=== PATIENT | female | born 1985 | race Caucasian/White ===

== ENCOUNTER 2019-04-11 18:33 | Emergency (ER) | payer SELFPAY ==
--- NOTE | 2019-04-11 18:51 | EDM.PDOCBH ---
<Zulema Estrella - Last Filed: 04/11/19 19:05> ED HPI GENERAL MEDICAL PROBLEM - General Chief Complaint: Behavioral/Psych Stated Complaint: suicidial ideation/medical clearance for senior care Time Seen by Provider: 04/11/19 18:33 Source of Information: Reports: Patient - History of Present Illness INITIAL COMMENTS - FREE TEXT/NARRATIVE: Patient comes into the emergency department under police custody for medical clearance. After the patient was arrested she did tell the arresting officer that she was suicidal. The arresting officer would like the patient evaluated regarding her statements. The patient states that she has a longstanding history of suicidal ideation plans and intent. Patient also states that she has been hospitalized on 5 or 6 different occasions throughout her pediatric and adult life related to suicidal attempts. The last attempt was approximately 3 weeks ago where she did try to overdose on medications that were not prescribed to her. Patient states that she has been getting a plethora of medications from other individuals in the community including Xanax , oxycodones, and hydrocodone's. States that she is also an avid user of methamphetamine she uses it almost on a daily basis. Patient states that she has been suicidal now for approximately 3 months and has most recently devised plans and has a attempted as stated above 3 weeks ago and does plan to attempt if at all possible. She does plan to attempt suicide by overdosing on medications and combination of alcohol. States that she has been diagnosed with schizoaffective disorder, borderline personality disorder, anxiety disorder , and major depressive disorder along with PTSD. States that she is supposed be on mood stabilization medication along with anxiety medication however she has not had insurance for the past 6 months and stopped taking her medications. Patient states that she has been self-medicating with the use of methamphetamine and pills. She states that she uses methamphetamine on a daily basis and any other pill forms that she can get her hands on. She also admits to using marijuana on a regular basis. Patient is currently under arrest for warrants. Patient states that she is currently homeless and has no reason to live. She does not have any housing for her family is no longer talking with her. States that she has been an active member and the social services designee in the past to help with her mental stability however she has not sought out treatment or working with them in the past year. Patient does want to reach out to patient rehabilitation for drug treatment however she is not willing to do outpatient services. Patient currently states that she feels sad, loss of interest, hopeless, helpless, worthless, loss of interest, patient states that she also has excessive worry, poor concentration,, and irritability. She also endorses self cutting behaviors. She states that she has 56 cuts on bilateral arms and lower extremities down by her feet. Cutting episode was approximately 1 week ago. Patient denies any homicidal ideations but states that she would like to harm herself at any chance she can get. Onset: Gradual Quality: Reports: Other Severity: Mild Improves with: Reports: None Worsens with: Reports: None Associated Symptoms: Reports: No Other Symptoms - Related Data Allergies Allergy/AdvReac Type Severity Reaction Status Date / Time codeine Allergy Vomiting Verified 04/11/19 18:43 tramadol Allergy Vomiting Verified 04/11/19 18:43 Home Meds: Home Meds . [No Known Home Meds] 04/11/19 [History] Past Medical History Psychiatric History: Reports: Addiction, Depression, Suicide Attempt, Suicidal Ideation Social & Family History - Tobacco Use Smoking Status *Q: Unknown Ever Smoked - Recreational Drug Use Recreational Drug Use: Yes Drug Use in Last 12 Months: Yes Recreational Drug Type: Reports: Methamphetamine, Morphine Recreational Drug Use Frequency: Daily ED ROS GENERAL - Review of Systems Review Of Systems: Comprehensive ROS is negative, except as noted in HPI. Constitutional: Reports: No Symptoms HEENT: Reports: No Symptoms Respiratory: Reports: No Symptoms Cardiovascular: Reports: No Symptoms Endocrine: Reports: No Symptoms GI/Abdominal: Reports: No Symptoms : Reports: No Symptoms Musculoskeletal: Reports: No Symptoms Skin: Reports: No Symptoms Neurological: Reports: No Symptoms Psychiatric: Reports: Agitation, Anxiety, Depression, Mood Lability, Suicidal Ideation Hematologic/Lymphatic: Reports: No Symptoms Immunologic: Reports: No Symptoms ED EXAM, BEHAVIORAL HEALTH - Physical Exam Exam: See Below Exam Limited By: No Limitations General Appearance: Alert, WD/WN Eye Exam: Bilateral Eye: EOMI Head: Atraumatic, Normocephalic Neck: Normal Inspection, Supple, Non-Tender, Full Range of Motion Respiratory/Chest: No Respiratory Distress, Lungs Clear, No Accessory Muscle Use Cardiovascular: Normal Peripheral Pulses, Regular Rate, Rhythm, No Edema GI/Abdominal: Normal Bowel Sounds, Soft, Non-Tender Back Exam: Normal Inspection, Full Range of Motion Extremities: Other (multiple superficial self cutting episodes ) Neurological: Alert, Normal Cognition, Oriented x 3 Psychiatric: Depressed Mood, Flat Affect, Restless Skin Exam: Warm, Dry, Other (superficial cutes bilateral arms multiple stages of healing. Bilateral lower legs multiple stages of healing. ) COURSE, BEHAVIORAL HEALTH COMP - Course Vital Signs: Last Vital Signs Temp 36.2 C 04/11/19 18:33 Pulse 90 04/11/19 18:33 Resp 18 04/11/19 18:33 BP 134/86 04/11/19 18:33 Pulse Ox 100 04/11/19 18:33 Orders, Labs, Meds: Laboratory Tests 04/11/19 04/11/19 04/11/19 Range/Units 19:08 19:08 19:30 WBC 8.7 (4.0-10.0) x10^3/uL RBC 4.36 (4.00-5.50) x10^6/uL Hgb 12.8 (12.0-16.0) g/dL Hct 38.5 (33.0-47.0) % MCV 88.3 (78.0-93.0) fL MCH 29.4 (26.0-32.0) pg MCHC 33.2 (32.0-36.0) g/dL RDW Coeff of Em 13.4 (10.0-15.0) % Plt Count 243 (130-400) x10^3/uL Neut % (Auto) 70.6 (50.0-80.0) % Lymph % (Auto) 18.8 L (25.0-50.0) % [place] % (Auto) 7.7 (2.0-11.0) % Eos % (Auto) 2.7 (0.0-4.0) % Baso % (Auto) 0.2 (0.2-1.2) % Sodium 140 (136-145) mmol/L Potassium 3.8 (3.5-5.1) mmol/L Chloride 103 (98-107) mmol/L Carbon Dioxide 28 (21-32) mmol/L Anion Gap 12.8 (10-20) mmol/L BUN 14 (7-18) mg/dL Creatinine 0.9 (0.55-1.02) mg/dL Est Cr Clr Drug Dosing TNP Estimated GFR (MDRD) > 60 Glucose 87 (74-106) mg/dL Calcium 8.7 (8.5-10.1) mg/dL Corrected Calcium 8.78 (8.5-10.1) mg/dL Total Bilirubin 0.4 (0.2-1.0) mg/dL AST 15 (15-37) U/L ALT 24 (14-59) U/L Alkaline Phosphatase 72 (46-116) U/L Total Protein 7.6 (6.4-8.2) g/dL Albumin 3.9 (3.4-5.0) g/dL Globulin 3.7 Albumin/Globulin Ratio 1.05 Urine Opiates Screen Negative (NEGATIVE) Ur Buprenorphine Scrn Negative (NEGATIVE) Ur Oxycodone Screen Negative (NEGATIVE) Ur EDDP (Meth Metab) Negative (NEGATIVE) Urine Methadone Screen Negative (NEGATIVE) Ur Barbituates Screen Negative (NEGATIVE) Ur Tricyclics Screen Negative (NEGATIVE) Ur Phencyclidine Scrn Negative (NEGATIVE) Ur Amphetamines Screen Positive H (NEGATIVE) U Methamphetamines Scrn Positive H (NEGATIVE) Urine MDMA Screen Negative (NEGATIVE) U Benzodiazepines Scrn Positive H (NEGATIVE) Urine Cocaine Screen Negative (NEGATIVE) U Marijuana (THC) Screen Negative (NEGATIVE) Departure - Departure Disposition: DC/Tfer to Other 70 Clinical Impression: Suicidal ideation - Discharge Information Referrals: Varun Churchill MD [Primary Care Provider] - Forms: ED Department Discharge Additional Instructions: Follow-up with [facility] as needed. The # is [phone]. Sepsis Event Note - Evaluation Sepsis Screening Result: No Definite Risk - Focused Exam Date Exam was Performed: 04/11/19 Time Exam was Performed: 19:05 - Assessment/Plan Plan: 1. report provided to Morro Perez who will assume care. Labs and urine ordered. <Morro Perez W - Last Filed: 04/21/19 11:13> Departure - Departure Time of Disposition: 20:30
[2019-04-11 19:34] LABS: CHLORIDE,CL 103 mmol/L (98-107); SODIUM,NA 140 mmol/L (136-145)
[2019-04-11 19:37] LABS: ANION GAP 12.8 mmol/L (10-20)
[2019-04-11 19:43] LABS: BUPRENORPHINE,URINE NEGATIVE (NEGATIVE); MARIJUANA,URINE NEGATIVE (NEGATIVE); METHYLENEDIOXYMETHAMP,UR NEGATIVE (NEGATIVE); PHENCYCLIDINE,URINE NEGATIVE (NEGATIVE)
== END 2019-04-11 20:45 | disposition other institution (70) ==
LOC: VM.ED 18:33
DX: R45.851 Suicidal ideations (principal); Z88.5 Allergy status to narcotic agent
CPT/HCPCS: 36415; 80053; 80305-QW; 85025; 99285

== ENCOUNTER 2020-09-02 08:31 | Emergency (ER) | payer SELFPAY ==
[2020-09-02] MEDS ORDERED: Ibuprofen 200 MG Tab PO ONE (08:44)
--- NOTE | 2020-09-02 09:25 | CR ---
[id number] RAD/RAD Chest PA And Lateral EXAM: RAD Chest PA And Lateral CLINICAL DATA: TRAUMA COMPARISON: No previous similar exam is available. FINDINGS: The lungs are clear. The cardiomediastinal contour is normal. The regional bones and soft tissues are unremarkable. IMPRESSION: NO ACUTE PROCESS. Dale Mcclure MD 09/02/20 0924 Thank you for allowing us to participate in the care of your patient.
--- NOTE | 2020-09-02 09:45 | CR ---
[id number] RAD/RAD Wrist Right 3V Min EXAM: RAD Wrist Right 3V Min CLINICAL DATA: TRAUMA COMPARISON: No previous similar exam is available. FINDINGS: No fracture or dislocation is seen. There is no radiopaque foreign body in the soft tissues. There is no air in the soft tissues. There is no cortical thickening or periosteal reaction either. IMPRESSION: NEGATIVE PLAIN FILM EXAM. Dale Mcclure MD 09/02/20 0944 Thank you for allowing us to participate in the care of your patient.
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
== END 2020-09-02 10:30 ==
LOC: VM.ED 08:31
DX: S63.501A Unspecified sprain of right wrist, initial encounter (principal); S20.211A Contusion of right front wall of thorax, initial encounter; Z88.5 Allergy status to narcotic agent; Y04.0XXA Assault by unarmed brawl or fight, initial encounter
CPT/HCPCS: 71046; 73110-RT; 99283; 99283-25; A9270-GY

== ENCOUNTER 2021-02-15 20:47 | Emergency (ER) | payer BC, MEDICAID ==
--- NOTE | 2021-02-15 21:15 | EDM.PDOC ---
ED HPI GENERAL MEDICAL PROBLEM - General Stated Complaint: shaky Time Seen by Provider: 02/15/21 21:00 Source of Information: Reports: Patient, Old Records, Police History Limitations: Reports: No Limitations - History of Present Illness INITIAL COMMENTS - FREE TEXT/NARRATIVE: [facility] shakiness for the last week or so that is getting worse. She has been incarcerated since August. Past history of alcohol abuse and methamphetamine and benzo abuse. Tested negative for hiv/hepc per patient in the last couple of months. No drug use in prison. has a history of anxiety and bipolar disease, was off her meds prior to prison, but now taking them. Has been having heat intolerability, hair loss, no weight change and worsening of tremor. NO changes in psych meds. Has had her covid vaccine. EAting and drinking normally, normal stools. no changes in color of urine.has been having cycles twice a month but is on hormone therapy. NO exposures to chemical , does not have a job at the prison Headache Pain Score (Numeric/FACES): 6 - Related Data Allergies Allergy/AdvReac Type Severity Reaction Status Date / Time codeine Allergy Vomiting Verified 09/02/20 10:39 tramadol Allergy Vomiting Verified 09/02/20 10:39 Home Meds: Home Meds . [Unable to Verify Home Med List] 09/02/20 [History] Past Medical History Psychiatric History: Reports: Addiction, Bipolar, Depression, Suicide Attempt, Suicidal Ideation Social & Family History - Alcohol Use Alcohol Use History: Yes Date/Time of Last Drink Comment: last use 08/2020 Alcohol Use in Last Twelve Months: Yes - Recreational Drug Use Recreational Drug Use: Yes Drug Use in Last 12 Months: Yes Recreational Drug Type: Reports: Benzodiazepines, Methamphetamine Recreational Drug Last Use: 08/2020 ED ROS GENERAL - Review of Systems Review Of Systems: See Below Constitutional: Denies: Fever, Chills, Malaise, Weakness, Fatigue, Night Sweats, Diaphoresis, Decreased Appetite, Weight Loss, Weight Gain HEENT: Denies: Dental Pain, Sinus Problem, Throat Pain, Throat Swelling Respiratory: Denies: Shortness of Breath, Cough Cardiovascular: Reports: Lightheadedness (with changing position), Palpitations. Denies: Chest Pain GI/Abdominal: Denies: Abdominal Pain, Anorexia, Black Stool, Bloody Stool, Diarrhea, Nausea, Vomiting : Reports: Irregular Menses. Denies: Dysuria, Flank Pain, Frequency, Incontinence, Urgency Musculoskeletal: Reports: No Symptoms Skin: Reports: No Symptoms Neurological: Reports: Tremors. Denies: Headache, Seizure, Syncope, Tingling, Difficulty Walking, Weakness Psychiatric: Reports: Anxiety, Depression, Mood Lability ED EXAM, GENERAL - Physical Exam Exam: See Below Exam Limited By: No Limitations General Appearance: Alert, WD/WN, No Apparent Distress Eye Exam: Bilateral Eye: EOMI, Normal Inspection, PERRL Ears: Normal External Exam, Normal Canal, Hearing Grossly Normal, Normal TMs Nose: Normal Inspection Throat/Mouth: Normal Inspection, Normal Lips, Normal Oropharynx, Normal Voice, No Airway Compromise Head: Atraumatic Neck: Normal Inspection, Supple, Non-Tender, Full Range of Motion. No: Thyromegaly Respiratory/Chest: No Respiratory Distress, Lungs Clear, No Accessory Muscle Use, Chest Non-Tender Cardiovascular: Normal Peripheral Pulses, Regular Rate, Rhythm GI/Abdominal: Normal Bowel Sounds, Soft, Non-Tender, No Distention, No Abnormal Bruit, No Mass Back Exam: Normal Inspection, Full Range of Motion. No: CVA Tenderness (L), CVA Tenderness (R) Extremities: Normal Inspection, Normal Range of Motion, Non-Tender, No Pedal Edema, Normal Capillary Refill Neurological: Alert, Oriented, CN II-XII Intact, Normal Cognition, Normal Gait, No Motor/Sensory Deficits, Other (fine tremor, more with intention of movement. can grasp objects, no weakness) Psychiatric: Normal Affect, Normal Mood (cooperative) Skin Exam: Warm, Dry, Intact Course - Vital Signs Last Recorded V/S: Last Vital Signs Temp 37.2 C 02/15/21 20:50 Pulse 75 02/15/21 20:50 Resp 18 02/15/21 20:50 BP 116/58 L 02/15/21 20:50 Pulse Ox 98 02/15/21 20:50 - Orders/Labs/Meds Orders: Active Orders 24 hr Category Date Time Status CULTURE URINE [RM] Stat Lab 02/15/21 21:30 Received Labs: Laboratory Tests 02/15/21 02/15/21 02/15/21 Range/Units 21:30 21:30 21:30 WBC (4.0-10.0) x10^3/uL RBC (4.00-5.50) x10^6/uL Hgb (12.0-16.0) g/dL Hct (33.0-47.0) % MCV (78.0-93.0) fL MCH (26.0-32.0) pg MCHC (32.0-36.0) g/dL RDW Coeff of Em (10.0-15.0) % Plt Count (130-400) x10^3/uL Immature Gran % (Auto) (0.00-0.43) % Neut % (Auto) (50.0-80.0) % Lymph % (Auto) (25.0-50.0) % [place] % (Auto) (2.0-11.0) % Eos % (Auto) (0.0-4.0) % Baso % (Auto) (0.2-1.2) % Neut # (Auto) (1.8-7.7) x10^3/uL Lymph # (Auto) (1.0-4.8) x10^3/uL [place]on # (Auto) (0.0-0.8) x10^3/uL Eos # (Auto) (0.0-0.5) x10^3/uL Baso # (Auto) (0.0-0.2) x10^3/uL Immature Gran # (Auto) (0.00-0.07) x10^3/uL Sodium (136-145) mmol/L Potassium (3.5-5.1) mmol/L Chloride (98-107) mmol/L Carbon Dioxide (21-32) mmol/L Anion Gap (5-15) mmol/L BUN (7-18) mg/dL Creatinine (0.55-1.02) mg/dL Est Cr Clr Drug Dosing mL/min Estimated GFR (MDRD) Glucose (70-99) mg/dL Calcium (8.5-10.1) mg/dL Corrected Calcium (8.5-10.1) mg/dL Magnesium (1.8-2.4) mg/dL Total Bilirubin (0.2-1.0) mg/dL AST (15-37) U/L ALT (14-59) U/L Alkaline Phosphatase (46-116) U/L Ammonia (19-54) ug/dL Total Protein (6.4-8.2) g/dL Albumin (3.4-5.0) g/dL Globulin Albumin/Globulin Ratio TSH, Ultra Sensitive (0.358-3.74) uIU/mL Urine Color Yellow (YELLOW) Urine Appearance Slightly cloudy H (CLEAR) Urine pH 5.5 (5.0-8.0) Ur Specific [place] 1.025 Urine Protein Negative (NEGATIVE) mg/dL Urine Glucose (UA) Negative (NEGATIVE) mg/dL Urine Ketones Negative (NEGATIVE) mg/dL Urine Occult Blood Moderate H (NEGATIVE) Urine Nitrite Negative (NEGATIVE) Urine Bilirubin Negative (NEGATIVE) Urine Urobilinogen 0.2 (0.2) EU/dL Ur Leukocyte Esterase Trace H (NEGATIVE) Urine RBC 75-100 H (NOT SEEN) /HPF Urine WBC 5-10 H (NOT SEEN) /HPF Ur Squamous Epith Cells Occasional H (NOT SEEN) /HPF Urine Bacteria Rare (NOT SEEN) /HPF Urine Mucus Rare H (NOT SEEN) /LPF Urine HCG, Qual Negative (NEGATIVE) Urine Opiates Screen Negative (NEGATIVE) Ur Buprenorphine Scrn Negative (NEGATIVE) Ur Oxycodone Screen Negative (NEGATIVE) Urine Methadone Screen Negative (NEGATIVE) Ur Barbiturates Screen Negative (NEGATIVE) Ur Phencyclidine Scrn Negative (NEGATIVE) Ur Amphetamine Screen Negative (NEGATIVE) U Methamphetamines Scrn Negative (NEGATIVE) Urine MDMA Screen Negative (NEGATIVE) U Benzodiazepines Scrn Negative (NEGATIVE) U Cocaine Metab Screen Negative (NEGATIVE) U Marijuana (THC) Screen Negative (NEGATIVE) 02/15/21 02/15/21 02/15/21 Range/Units 21:30 21:30 21:30 WBC 12.3 H (4.0-10.0) x10^3/uL RBC 4.15 (4.00-5.50) x10^6/uL Hgb 12.4 (12.0-16.0) g/dL Hct 36.6 (33.0-47.0) % MCV 88.2 (78.0-93.0) fL MCH 29.9 (26.0-32.0) pg MCHC 33.9 (32.0-36.0) g/dL RDW Coeff of Em 12.3 (10.0-15.0) % Plt Count 275 (130-400) x10^3/uL Immature Gran % (Auto) 0.20 (0.00-0.43) % Neut % (Auto) 76.0 (50.0-80.0) % Lymph % (Auto) 15.9 L (25.0-50.0) % [place] % (Auto) 6.4 (2.0-11.0) % Eos % (Auto) 1.2 (0.0-4.0) % Baso % (Auto) 0.3 (0.2-1.2) % Neut # (Auto) 9.3 H (1.8-7.7) x10^3/uL Lymph # (Auto) 2.0 (1.0-4.8) x10^3/uL [place] # (Auto) 0.8 (0.0-0.8) x10^3/uL Eos # (Auto) 0.2 (0.0-0.5) x10^3/uL Baso # (Auto) 0.0 (0.0-0.2) x10^3/uL Immature Gran # (Auto) 0.02 (0.00-0.07) x10^3/uL Sodium 139 (136-145) mmol/L Potassium 3.9 (3.5-5.1) mmol/L Chloride 101 (98-107) mmol/L Carbon Dioxide 26 (21-32) mmol/L Anion Gap 15.9 H (5-15) mmol/L BUN 10 (7-18) mg/dL Creatinine 0.9 (0.55-1.02) mg/dL Est Cr Clr Drug Dosing 88.01 mL/min Estimated GFR (MDRD) > 60 Glucose 94 (70-99) mg/dL Calcium 8.6 (8.5-10.1) mg/dL Corrected Calcium 8.8 (8.5-10.1) mg/dL Magnesium 2.0 (1.8-2.4) mg/dL Total Bilirubin 0.2 (0.2-1.0) mg/dL AST 12 L (15-37) U/L ALT 19 (14-59) U/L Alkaline Phosphatase 75 (46-116) U/L Ammonia 29 (19-54) ug/dL Total Protein 7.6 (6.4-8.2) g/dL Albumin 3.7 (3.4-5.0) g/dL Globulin 3.9 Albumin/Globulin Ratio 0.95 TSH, Ultra Sensitive 2.044 (0.358-3.74) uIU/mL Urine Color (YELLOW) Urine Appearance (CLEAR) Urine pH (5.0-8.0) Ur Specific [place] Urine Protein (NEGATIVE) mg/dL Urine Glucose (UA) (NEGATIVE) mg/dL Urine Ketones (NEGATIVE) mg/dL Urine Occult Blood (NEGATIVE) Urine Nitrite (NEGATIVE) Urine Bilirubin (NEGATIVE) Urine Urobilinogen (0.2) EU/dL Ur Leukocyte Esterase (NEGATIVE) Urine RBC (NOT SEEN) /HPF Urine WBC (NOT SEEN) /HPF Ur Squamous Epith Cells (NOT SEEN) /HPF Urine Bacteria (NOT SEEN) /HPF Urine Mucus (NOT SEEN) /LPF Urine HCG, Qual (NEGATIVE) Urine Opiates Screen (NEGATIVE) Ur Buprenorphine Scrn (NEGATIVE) Ur Oxycodone Screen (NEGATIVE) Urine Methadone Screen (NEGATIVE) Ur Barbiturates Screen (NEGATIVE) Ur Phencyclidine Scrn (NEGATIVE) Ur Amphetamine Screen (NEGATIVE) U Methamphetamines Scrn (NEGATIVE) Urine MDMA Screen (NEGATIVE) U Benzodiazepines Scrn (NEGATIVE) U Cocaine Metab Screen (NEGATIVE) U Marijuana (THC) Screen (NEGATIVE) - Re-Assessments/Exams Free Text/Narrative Re-Assessment/Exam: 02/15/21 21:19 will check labs, urine, to include a drug screen and TSH. Pateint cooperative, drinking water, guard is present. has her menstrual cycle 02/15/21 22:04 testing is negative. Could be a side effect of her psych medications Will have her follow up with PCP Departure - Departure Time of Disposition: 22:05 Disposition: Home, Self-Care 01 Condition: Good Clinical Impression: Tremors of nervous system - Discharge Information *PRESCRIPTION DRUG MONITORING PROGRAM REVIEWED*: No *COPY OF PRESCRIPTION DRUG MONITORING REPORT IN PATIENT DANIELLE: No Instructions: Tremor Additional Instructions: follow up with PCP to discuss possible side effects of your medication or further evaluation into tremors. TEsting today was normal Sepsis Event Note (ED) - Focused Exam Vital Signs: Vital Signs Temp Pulse Resp BP Pulse Ox 02/15/21 20:50 37.2 C 75 18 116/58 L 98 - My Orders Last 24 Hours: My Active Orders 02/15/21 21:30 CULTURE URINE [RM] Stat - Assessment/Plan Last 24 Hours: My Active Orders 02/15/21 21:30 CULTURE URINE [RM] Stat
[2021-02-15 21:43] LABS: BARBITURATE SCREEN,URINE NEGATIVE (NEGATIVE); BENZODIAZEPINES SCREEN,URINE NEGATIVE (NEGATIVE); BUPRENORPHINE SCREEN,URINE NEGATIVE (NEGATIVE); METHAMPHETAMINE SCREEN, URINE NEGATIVE (NEGATIVE); THC SCREEN,URINE 50 NG/ML NEGATIVE (NEGATIVE)
[2021-02-15 22:02] LABS: CHLORIDE,CL 101 mmol/L (98-107); SODIUM,NA 139 mmol/L (136-145)
[2021-02-15 22:03] LABS: ANION GAP 15.9 mmol/L (5-15)
== END 2021-02-15 22:10 | disposition home or self-care (01) ==
LOC: VM.ED 20:47
DX: R25.1 Tremor, unspecified (principal); Z88.5 Allergy status to narcotic agent
CPT/HCPCS: 36415; 80053; 80305-QW; 81001; 81025; 82140; 83735; 84443; 85025; 87086; 99284